=== PATIENT | female | born 1975 | race Caucasian/White ===

== ENCOUNTER 2024-11-29 23:16 | Emergency (ER) | payer BC, SELFPAY ==
[2024-11-29 23:20] VITALS: BP 144/108; PULSE 85; TEMP 36.4; O2SAT 96; BMI 29.1
--- NOTE | 2024-11-29 23:57 | ED.GENADUL1 ---
HPI HPI - General Adult General Chief complaint: Animal Bite Stated complaint: GASH ON LEFT ARM AND RIGHT HAND Time Seen by Provider: 11/29/24 23:17 Source: patient Mode of arrival: walk-in Limitations: no limitations History of Present Illness HPI narrative: 49-year-old female presents for dog bite. She was bitten by her own dog when the dog was sleeping and the patient startled the dog. She was bit on the palm of the right hand but also the left upper arm. It has been more than 10 years since she has had a tetanus shot. No weakness or numbness in her hand. This happened just before coming into the emergency department. Related Data Previous Rx's ?Medication ?Instructions ?Recorded amoxicillin 875 mg-potassium 1 tab PO BID #14 tabs 11/29/24 clavulanate 125 mg tablet Allergies Allergy/AdvReac Type Severity Reaction Status Date / Time No Known Drug Allergies Allergy Verified 11/29/24 23:20 Review of Systems ROS Narrative A ten point review of systems is negative except as noted above. PFSH PFSH Social History Little interest or pleasure in doing things: not at all Feeling down, depressed, or hopeless: not at all Exam Narrative Exam Narrative: Nurses note and vital signs reviewed and patient is not hypoxic. General: The patient appears well and in no apparent distress. Patient is resting comfortably on cart. Skin: Warm, dry, no pallor noted. There is no rash noted. Head: Normocephalic, atraumatic Eye: Normal conjunctiva, no drainage Ears, Nose, Mouth, and Throat: oral mucosa is moist. Nares patent. Cardiovascular: Regular Rate and Rhythm Respiratory: Patient is in no distress, no accessory muscle use Back: non-tender GI: Soft and nontender Musculoskeletal: She has a superficial laceration on the palm of her right hand which is not gaping. Fingers have full range of motion. She has multiple abrasions on the left elbow area both above and below the elbow. Elbow has full range of motion. Fingers have full range of motion. She has a 3 cm gaping laceration just above the left elbow with no active bleeding or foreign bodies noted. Neurological: A&O, normal speech Psychiatric: Cooperative Constitutional Vital Signs, click to edit/add: Last Vital Signs Temp 97.6 F 11/29/24 23:20 Pulse 85 05/19/25 23:20 Resp 16 11/29/24 23:20 BP 144/108 H 11/29/24 23:20 Pulse Ox 96 11/29/24 23:20 O2 Del Method Room Air 11/29/24 23:20 Course Vital Signs Vital signs: Vital Signs Temperature 97.6 F 11/29/24 23:20 Pulse Rate 85 11/29/24 23:20 Respiratory Rate 16 11/29/24 23:20 Blood Pressure 144/108 H 11/29/24 23:20 Pulse Oximetry 96 11/29/24 23:20 Oxygen Delivery Method Room Air 11/29/24 23:20 Temperature 97.6 F 11/29/24 23:20 Pulse Rate 85 11/29/24 23:20 Respiratory Rate 16 11/29/24 23:20 Blood Pressure 144/108 H 11/29/24 23:20 Pulse Oximetry 96 11/29/24 23:20 Oxygen Delivery Method Room Air 11/29/24 23:20 Medical Decision Making MDM Narrative Medical decision making narrative: The following procedure was performed by me. Local infiltration was carried out with 1% lidocaine without epinephrine resulting in complete skin anesthesia. The 3 cm laceration was prepped with Betadine x 3 and draped sterilely and explored for foreign bodies none were found. The wound was then reapproximated with two 4-0 Ethilon sutures resulting in good skin reapproximation and no complications and complete hemostasis. No other sutures are indicated or recommended elsewhere. Tetanus status is updated and she was started on Augmentin and prescribed Augmentin. She will have her sutures removed in 10 days. Treatment diagnosis and follow-up were discussed with the patient. I have no clinical suspicion of tendon injury. Differential Diagnosis Differential Diagnosis: Dog bite, laceration, tendon injury Discharge Plan Discharge Chief Complaint: Animal Bite Clinical Impression: Dog bite Patient Disposition: Home, Self-Care Time of Disposition Decision: 23:56 Condition: Good Mode of Transportation: Private Vehicle Prescriptions / Home Meds: New amoxicillin-pot clavulanate 875-125 mg tablet 1 tab PO BID Qty: 14 0RF Print Language: Greek Instructions: Animal Bite (ED) Additional Instructions: Sutures are to be removed in 10 days.
[2024-11-30] MEDS: ADACEL DIPH,PERTUSS(ACELL),TET VAC/PF 0.5 ML ADULT SYRINGE IM (00:16)
[2024-11-30] MEDS: AMOXICILLIN/POT CLAV 875-125 MG TABLET 1 TAB PO (00:16)
[2024-11-30] MEDS: LIDOCAINE HCL 1% 100 MG/10 ML MDV INJ (00:16)
== END 2024-11-30 00:25 | disposition home or self-care (01) ==
PROVIDERS: Emergency Provider Emergency Medicine; PCP Nurse Practitioner Family
DX: S41.112A Laceration without foreign body of left upper arm, initial encounter (principal); S61.411A Laceration without foreign body of right hand, initial encounter; W54.0XXA Bitten by dog, initial encounter; Z23 Encounter for immunization
CPT/HCPCS: 12002; 90471; 90715; 99283

== ENCOUNTER 2024-12-09 16:03 | Emergency (ER) | payer BC, SELFPAY ==
[2024-12-09 16:07] VITALS: BP 130/88; PULSE 89; TEMP 37.1; O2SAT 94; BMI 29.1
--- NOTE | 2024-12-09 16:16 | PC.NURSE ---
right hand wound healing is normal, no redness, swelling or drainage. left arm has 2 sutures in posterior side, scab to center and redness around healing wound. wound to left anterior arm where steri strips were placed is healing wnl. No redness, swelling or drainage observed.
--- NOTE | 2024-12-09 16:24 | ED.SKABFB1 ---
HPI - Skin/Abscess/Foreign Bdy General Chief complaint: Skin/Abscess/Foreign Body Stated complaint: stitches removed Time Seen by Provider: 12/09/24 16:11 Source: patient Mode of arrival: walk-in History of Present Illness HPI narrative: 49 year old female presents to the ED for suture removal from her left upper arm, wound check. She had a dog bite on 11/29/24. Two sutures were placed to her left upper arm. Denies fever, chills, drainage from the wounds. Related Data Previous Rx's ?Medication ?Instructions ?Recorded amoxicillin 875 mg-potassium 1 tab PO BID #14 tabs 11/29/24 clavulanate 125 mg tablet amoxicillin 875 mg-potassium 1 tab PO BID #10 tabs 12/09/24 clavulanate 125 mg tablet Allergies Allergy/AdvReac Type Severity Reaction Status Date / Time No Known Drug Allergies Allergy Verified 11/29/24 23:20 Review of Systems ROS Constitutional Denies: fever or chills Cardiovascular Denies: chest pain Respiratory Denies: shortness of breath Integumentary/Breast Reports: other (Wounds to right palm, left arm) Neurological Denies: numbness in extremities or weakness in extremities PFSH PFSH Social History Little interest or pleasure in doing things: not at all Feeling down, depressed, or hopeless: not at all Exam Constitutional Vital Signs, click to edit/add: Last Vital Signs Temp 98.8 F 12/09/24 16:07 Pulse 89 12/09/24 16:07 Resp 18 12/09/24 16:07 BP 130/88 12/09/24 16:07 Pulse Ox 94 L 12/09/24 16:07 O2 Del Method Room Air 12/09/24 16:07 Common normals: no apparent distress and oriented x3 General appearance: cooperative Eye Common normals: conjunctivae normal and no scleral icterus Neck & C-Spine Common normals: supple Respiratory Common normals: normal respiratory effort Effort & inspection: able to speak in complete sentences and symmetric chest movement Cardio Common normals: regular rate Extremity Other: Wounds to left arm and right palm appear to be healing well. Scabs noted to the wounds. There is a wound to the left distal upper arm that has two sutures in place. There is some erythema to the surrounding area. Area is firm. No drainage. No swelling. Neuro Common normals: oriented x3 and moves all extremities Sensorium/orientation: awake and alert Speech: speech normal Course Vital Signs Vital signs: Vital Signs Temperature 98.8 F 12/09/24 16:07 Pulse Rate 89 12/09/24 16:07 Respiratory Rate 18 12/09/24 16:07 Blood Pressure 130/88 12/09/24 16:07 Pulse Oximetry 94 L 12/09/24 16:07 Oxygen Delivery Method Room Air 12/09/24 16:07 Temperature 98.8 F 12/09/24 16:07 Pulse Rate 89 12/09/24 16:07 Respiratory Rate 18 12/09/24 16:07 Blood Pressure 130/88 12/09/24 16:07 Pulse Oximetry 94 L 12/09/24 16:07 Oxygen Delivery Method Room Air 12/09/24 16:07 MDM - Skin/Abscess/Foreign Bdy MDM Narrative Medical decision making narrative: Her wounds appeared to be healing well. There is some erythema around the wound to the left upper arm that contained the sutures. Two sutures were removed. A prescription was provided for Augmentin. Follow up with pcp for a recheck, further evaluation and treatment. Medical Records Attestation: I reviewed the patient's medical records. Discharge Plan Discharge Chief Complaint: Skin/Abscess/Foreign Body Clinical Impression: Encounter for removal of sutures, Visit for wound check Patient Disposition: Home, Self-Care Time of Disposition Decision: 16:22 Condition: Good Mode of Transportation: Private Vehicle Prescriptions / Home Meds: New amoxicillin-pot clavulanate 875-125 mg tablet 1 tab PO BID Qty: 10 0RF No Action amoxicillin-pot clavulanate 875-125 mg tablet 1 tab PO BID Qty: 14 0RF Print Language: Croatian Instructions: Stitches Removal (ED) Additional Instructions: Return to the ER if your condition worsens. Referrals: Ny Cohen NP [Primary Care Provider] - 1 week Discharge Date/Time: 12/09/24 16:32
== END 2024-12-09 16:32 | disposition home or self-care (01) ==
PROVIDERS: Emergency Provider Emergency Medicine; PCP Nurse Practitioner Family
DX: L53.8 Other specified erythematous conditions (principal); Z48.02 Encounter for removal of sutures; W54.0XXD Bitten by dog, subsequent encounter
CPT/HCPCS: 99281